=== PATIENT | female | born 1995 | race Caucasian/White ===

== ENCOUNTER 2016-12-20 18:11 | Emergency (ER) | payer MEDICAID, OTHER ==
[~2016-12-20] VITALS: Ht 165.1 cm; Wt 68.2 kg
[~2016-12-20 18:11] MED LIST: PREN0.01 PO; SULF1TAB47 PO
[2016-12-20 18:20] VITALS: BP 95/72; PULSE 110; RESP 18; TEMP 98.1; O2SAT 100
[2016-12-20] MEDS ORDERED: LORA2TAB7 PO (18:39)
[2016-12-20] MEDS ORDERED: SPRI28TA PO (18:39)
[2016-12-20] MEDS ORDERED: SODIUM CHLORID 0.9% 500 ML INJ 500 ML IV ONE (18:45)
[2016-12-20] MEDS ORDERED: DICYCLOMINE HCL 10 MG CAP PO ONE (18:45)
[2016-12-20] MEDS ORDERED: LIDOCAINE VISCOUS 2% SOLN 15 ML UDC PO ONE (18:45)
[2016-12-20] MEDS ORDERED: ONDANSETRON HCL 4 MG/2 ML VIAL IVP ONE (18:45)
[2016-12-20] MEDS ORDERED: SODIUM CHLORIDE 0.9% FLUSH 10 ML FLUSH IVF PRN (18:45)
[2016-12-20] MEDS ORDERED: FAMOTIDINE 20 MG/2 ML VIAL IV PUSH ONE (18:45)
[2016-12-20] MEDS ORDERED: ALUMINUM/MAGNESIUM/SIMETH 30 ML CUP PO ONE (18:45)
[2016-12-20 18:51] VITALS: O2SAT 100
--- NOTE | 2016-12-20 18:53 | PD ---
HPI Chief Complaint: Chest Pain Time Seen by Provider: 18:23 Travel History International Travel<30 days: No Contact w/Intl Traveler<30days: No Traveled to known affect area: No History of Present Illness HPI Patient is a 21-year-old female who presents to emergency room with complaints of chest pain and abdominal pain. Patient reports that her symptoms all began in 2014 after she had her gallbladder taken out. Patient reports that she has been having increased epigastric pain which radiates to her chest, reports that her symptoms initially were intermittent in nature, reports that for the past 2 months, her symptoms have been constant. Patient reports that she did follow- up with her primary care doctor who checked labs on her, reports that her primary care doctor thought that she had pancreatitis, reports that her lipase was normal. Patient reports that for the past 2 months, she has had constant chest pain as well as epigastric pain. Reports that the epigastric pain researcher chest. Patient reports that symptoms feel sharp and stabbing and pressure pain, reports that she does feel nauseous with her symptoms. Patient reports that nothing makes her symptoms feel better or worse. Patient has been tolerating food as normal that she admits to feeling nauseous after she eats or drinks anything. Denies any weight loss. No fevers or chills. Patient with no recent travels or trips, she is on control pills at this time. Patient is a smoker. No family history of early coronary disease or NV. Patient does not have any coronary disease, hypertension or hyperlipidemia. PFSH Past Medical History Asthma: Yes Diminished Hearing: No ?: Not Social History Alcohol Use: Yes (occ) Tobacco Use: Yes Substance Use: No Allergies-Medications (Allergen,Severity, Reaction): Coded Allergies: No Known Allergies (Verified , 11/13/11) Reported Meds & Prescriptions Reported Meds & Active Scripts Active Protonix (Pantoprazole Sodium) 40 Mg Tab 40 Mg PO DAILY Reported Sprintec 28 (Norgestimate-Ethinyl Estradiol) 0.25-35 mg-Mcg Tab 1 Tab PO DAILY Lorazepam 2 Mg Tab 2 Mg PO TID PRN Physical Exam Narrative GENERAL: No acute distress, nontoxic SKIN: Warm and dry. HEAD: Atraumatic. Normocephalic. EYES: Pupils equal and round. No scleral icterus. No injection or drainage. ENT: No nasal bleeding or discharge. Mucous membranes pink and moist. NECK: Trachea midline. No JVD. CARDIOVASCULAR: Regular rate and rhythm. No murmur appreciated. RESPIRATORY: No accessory muscle use. Clear to auscultation. Breath sounds equal bilaterally. GASTROINTESTINAL: Abdomen soft, non-tender, nondistended. Hepatic and splenic margins not palpable. MUSCULOSKELETAL: No obvious deformities. No clubbing. No cyanosis. No edema. NEUROLOGICAL: Awake and alert. Normal speech. PSYCHIATRIC: Appropriate mood and affect; insight and judgment normal. Data Data Last Documented VS Vital Signs Date Time Temp Pulse Resp B/P Pulse Ox O2 Delivery O2 Flow Rate FiO2 12/20/16 20:40 94 16 115/69 99 Room Air 12/20/16 18:20 98.1 Orders Electrocardiogram (12/20/16 ) B-Type Natriuretic Peptide (12/20/16 18:31) Ckmb (Isoenzyme) Profile (12/20/16 18:31) Complete Blood Count With Diff (12/20/16 18:31) Comprehensive Metabolic Panel (12/20/16 18:31) D-Dimer (12/20/16 18:31) Troponin I (12/20/16 18:31) Lipase (12/20/16 18:31) Chest, Single Ap (12/20/16 18:31) Ecg Monitoring (12/20/16 18:31) Iv Access Insert/Monitor (12/20/16 18:31) Oximetry (12/20/16 18:31) Sodium Chloride 0.9% Flush (Ns Flush) (12/20/16 18:45) Sodium Chlorid 0.9% 500 Ml Inj (Ns 500 M (12/20/16 18:45) Ed Urine Pregnancytest Poc (12/20/16 18:31) Ondansetron Inj (Zofran Inj) (12/20/16 18:45) Famotidine Inj (Pepcid Inj) (12/20/16 18:45) Dicyclomine (Bentyl) (12/20/16 18:45) Al-Mag Hy-Si 40-40-4 Mg/Ml Liq (Mag-Al P (12/20/16 18:45) Lidocaine 2% Viscous (Xylocaine 2% Visco (12/20/16 18:45) Ct Pulmonary Angiogram (12/20/16 19:26) Ketorolac Inj (Toradol Inj) (12/20/16 19:30) Iohexol 350 Inj (Omnipaque 350 Inj) (12/20/16 20:13) Sucralfate Liq (Carafate Liq) (12/20/16 20:45) Labs Laboratory Tests Test 12/20/16 18:47 White Blood Count 11.3 TH/MM3 Red Blood Count 4.58 MIL/MM3 Hemoglobin 13.9 GM/DL Hematocrit 40.1 % Mean Corpuscular Volume 87.5 FL Mean Corpuscular Hemoglobin 30.2 PG Mean Corpuscular Hemoglobin 34.6 % Concent Red Cell Distribution Width 13.9 % Platelet Count 282 TH/MM3 Mean Platelet Volume 6.3 FL Neutrophils (%) (Auto) 88.5 % Lymphocytes (%) (Auto) 5.6 % Monocytes (%) (Auto) 3.9 % Eosinophils (%) (Auto) 1.8 % Basophils (%) (Auto) 0.2 % Neutrophils # (Auto) 10.1 TH/MM3 Lymphocytes # (Auto) 0.6 TH/MM3 Monocytes # (Auto) 0.4 TH/MM3 Eosinophils # (Auto) 0.2 TH/MM3 Basophils # (Auto) 0.0 TH/MM3 CBC Comment AUTO DIFF Differential Comment AUTO DIFF CONFIRMED D-Dimer Quantitative (PE/DVT) 0.34 MG/L FEU Sodium Level 142 MEQ/L Potassium Level 3.4 MEQ/L Chloride Level 105 MEQ/L Carbon Dioxide Level 29.7 MEQ/L Anion Gap 7 MEQ/L Blood Urea Nitrogen 13 MG/DL Creatinine 0.87 MG/DL Estimat Glomerular Filtration 82 ML/MIN Rate Random Glucose 87 MG/DL Calcium Level 8.0 MG/DL Total Bilirubin 0.9 MG/DL Aspartate Amino Transf 34 U/L (AST/SGOT) Alanine Aminotransferase 37 U/L (ALT/SGPT) Alkaline Phosphatase 67 U/L Total Creatine Kinase 73 U/L Troponin I LESS THAN 0.02 NG/ML B-Type Natriuretic Peptide 6 PG/ML Total Protein 7.5 GM/DL Albumin 3.6 GM/DL Lipase 357 U/L [facility] Medical Decision Making Medical Screen Exam Complete: Yes Emergency Medical Condition: Yes Interpretation(s) EKG at 1735: Sinus tach at 103bpm, qt/qtc: 322/397, no acute st or t wave changes Vital Signs Date Time Temp Pulse Resp B/P Pulse Ox O2 Delivery O2 Flow Rate FiO2 12/20/16 18:35 110 16 12/20/16 18:20 98.1 110 18 95/72 100 Differential Diagnosis ACS, arrhythmia, PE, pancreatitis, retained gallstone, GERD, gastritis Narrative Course Patient is a 21-year-old female who presents to emergency room for evaluation of epigastric pain which radiates to her chest which has been intermittent for the past 2 years. Patient reports that symptoms have been persistent for the past 2 months, she has follow-up with her primary care doctor who to check lab work on her last week and reported that everything looked normal. She has seen a home builder in the past, reports that her endoscopy was normal at that time. Patient unsure why she continues to have epigastric pain which relieved her chest. EKG obtained upon presentation to the emergency room. EKG with no acute changes. Patient was placed on a cardiac/vascular sonographer. On exam, patient is nontoxic , laughing smiling, she does have epigastric pain, plan to obtain lab work including lipase and liver function tests. X-ray of the chest ordered to evaluate for possible free air. Cardiac enzymes were ordered to rule out infectious etiology of chest pain including but not limited to pericarditis or endocarditis. Cardiac enzymes were not ordered to rule out ACS, as patient's symptoms are very atypical for ACS. Plan to give patient GI cocktail as well as pepcid to see if this helps with her symptoms. Will continue to monitor patient on cardiac/vascular sonographer. urine preg: neg wbc 11.3 Hemoglobin 13.9 Hematocrit 40.1 Platelets 282 Sodium 142 Potassium 3.4 Chloride 105 Carbon dioxide 29.7 BUN 13 Creatinine 0.87 Lipase 357 AST/ALT: 34/37 D-Dimer 0.34 Troponin: less than 0.02 total ck: 73 chest xray: normal exam for patient of this age Patient reports that she is not feeling any better with her symptoms, will give her a dose of Toradol for pain. Plan to rule PE at this time as patient was tachy upon arrival to ER and is on bcp's. Patient agreeable to further testing. Last Impressions CT Angiography 12/20/161925 Signed Impressions: Service Date/Time: November 19:54 - CONCLUSION: Normal examination. Richard Min MD Chest X-Ray 12/20/16 1831 Signed Impressions: Service Date/Time: November 18:51 - CONCLUSION: Normal examination for a patient of this age. Richard Min MD Patient feeling better at this time. Signs and symptoms of when to return to the emergency room was reviewed with patient detail. She will follow-up with her GI doctor as well as cardiology, signs and symptoms of when to return to emergency room was reviewed. Patient thankful for care. Diagnosis Primary Impression: Chest pain Qualified Code: R07.9 - Chest pain, unspecified type Additional Impressions: Costochondritis GERD (gastroesophageal reflux disease) Qualified Code: K21.9 - Gastroesophageal reflux disease without esophagitis Referrals: Guru Perkins DO Patient Instructions: General Instructions Additional Instructions: Please provide patient with a copy of her lab work and studies at discharge Steph follow-up with primary care doctor in 2-3 days Return to the emergency room as needed Please follow-up with biological technical officer for further workup of symptoms Please follow-up with your home builder for earliest follow-up Med/Other Pt SpecificInfo: Prescription(s) given Scripts Ibuprofen 600 Mg Ook886 Mg PO Q6H PRN (Pain/Inflammation) #40 TAB Ref 0 Prov:Luz Marina Gunter DO 12/20/16 Pantoprazole (Protonix)40 Mg Tab40 Mg PO DAILY #30 TAB Ref 0 Prov:Luz Marina Gunter DO 12/20/16 Disposition: 01 DISCHARGE HOME Luz Marina Gunter DO Dec 20, 2016 18:52
[2016-12-20 18:54] LABS: AUTOMATED NEUTROPHIL # 10.1 TH/MM3 (1.8-7.7); BASOPHIL % 0.2 % (0.0-2.0); EOSINOPHIL # 0.2 TH/MM3 (0-0.4); EOSINOPHIL % 1.8 % (0.0-4.0); HEMATOCRIT 40.1 % (35.0-46.0); LYMPH % 5.6 % (9.0-44.0); LYMPHOCYTE # 0.6 TH/MM3 (1.0-4.8); MEAN CELL VOLUME 87.5 FL (80.0-100.0); MEAN CORPUSCULAR HEMOGLOBIN 30.2 PG (27.0-34.0); MEAN CORPUSCULAR HGB CONC 34.6 % (32.0-36.0); MONO % 3.9 % (0.0-8.0); NEUT % 88.5 % (16.0-70.0); PLATELET COUNT 282 TH/MM3 (150-450); RED BLOOD COUNT 4.58 MIL/MM3 (4.00-5.30); RED CELL DISTRIBUTION WIDTH 13.9 % (11.6-17.2); WHITE BLOOD COUNT 11.3 TH/MM3 (4.0-11.0)
[2016-12-20 18:57] LABS: HEMO FLAGS AUTO DIFF
[2016-12-20 19:00] LABS: CHLORIDE 105 MEQ/L (98-107); POTASSIUM 3.4 MEQ/L (3.5-5.1); SODIUM (NA) 142 MEQ/L (136-145)
[2016-12-20 19:04] LABS: ANION GAP 7 MEQ/L (5-15); BICARBONATE 29.7 MEQ/L (21.0-32.0)
[2016-12-20 19:05] LABS: BLOOD UREA NITROGEN 13 MG/DL (7-18)
[2016-12-20 19:07] LABS: ALT (GPT) 37 U/L (10-53); AST (GOT) 34 U/L (15-37)
[2016-12-20 19:08] LABS: GLOMERULAR FILTRATION RATE 82 ML/MIN (>89)
[2016-12-20 19:09] LABS: TOTAL BILIRUBIN ADULT 0.9 MG/DL (0.2-1.0)
[2016-12-20 19:10] LABS: ALKALINE PHOSPHATASE 67 U/L (45-117)
--- NOTE | 2016-12-20 19:23 | RADHPO ---
EXAM DATE/TIME: 12/20/2016 18:51 [facility] COMPARISON: No previous studies available for comparison. INDICATIONS : Lower chest pains and shortness of breath. MEDICAL HISTORY : Asthma. SURGICAL HISTORY : Cholecystectomy. ENCOUNTER: Initial ACUITY: 2 months PAIN SCORE: 9/10 LOCATION: Bilateral lower chest FINDINGS: A single view of the chest demonstrates the lungs to be symmetrically aerated without evidence of mas s, infiltrate or effusion. The cardiomediastinal contours are unremarkable. Osseous structures are intact. CONCLUSION: Normal examination for a patient of this age. Richard Min MD on December 20, 2016 at 19:22 Board Certified Radiologist. This report was verified electronically.
[2016-12-20 19:24] VITALS: BP 115/69; PULSE 107; RESP 16; O2SAT 100
[2016-12-20] MEDS ORDERED: KETOROLAC TROMETHAMINE 30 MG/ML (IVP) VIAL IV PUSH ONE (19:30)
[2016-12-20 19:48] LABS: CREATINE KINASE 73 U/L (26-192)
[2016-12-20 20:07] LABS: SCAN/DIFF AUTO DIFF CONFIRMED
[2016-12-20] MEDS ORDERED: PROT40TA PO (20:10)
[2016-12-20] MEDS ORDERED: IOHEXOL 350 MG/ML 10 ML VIAL (for RAD DIAG) IV ONE (20:13)
[2016-12-20 20:40] VITALS: BP 115/69; PULSE 94; RESP 16; O2SAT 99
--- NOTE | 2016-12-20 20:41 | RADHPO ---
EXAM DATE/TIME: 12/20/2016 19:54 [facility] COMPARISON: No previous studies available for comparison. INDICATIONS : Chest pain. Shortness of breath. IV CONTRAST: 75 cc Omnipaque 350 (iohexol) IV RADIATION DOSE: 8.70 CTDIvol (mGy) MEDICAL HISTORY : Asthma. SURGICAL HISTORY : None. ENCOUNTER: Initial ACUITY: 2 days PAIN SCALE: 9/10 LOCATION: chest TECHNIQUE: Volumetric scanning of the chest was performed using a pulmonary embolism protocol MIP images were re constructed. Using automated exposure control and adjustment of the mA and/or kV according to patien t size, radiation dose was kept as low as reasonably achievable to obtain optimal diagnostic quality images. FINDINGS: PULMONARY ARTERIES: No filling defects are seen in the pulmonary arteries through the segmental level. LUNGS: There is no consolidation or pneumothorax . No concerning pulmonary nodule is visualized. PLEURAE: There is no pleural thickening or pleural effusion. MEDIASTINUM: There is good visualization of the great vessels of the middle mediastinum. No evidence of mediastin al or hilar adenopathy/mass. MUSCULOSKELETAL: Within normal limits for patient age. MISCELLANEOUS: The visualized upper abdominal organs demonstrate no acute abnormality. CONCLUSION: Normal examination. iRchard Min MD on December 20, 2016 at 20:36 Board Certified Radiologist. This report was verified electronically.
[2016-12-20] MEDS ORDERED: SUCRALFATE 1 GM/10 ML CUP PO ONE (20:45)
[2016-12-20] MEDS ORDERED: IBUP-232 PO (21:10)
[2016-12-20 21:35] VITALS: BP 116/60; PULSE 106; RESP 16
--- NOTE | 2016-12-22 11:14 | EKG ---
Date Performed: 12/20/2016 Time Performed: 17:35:12 PTAGE: 21 years EKG: Sinus tachycardia rSr'(V1) - probable normal variant Borderline ECG NO PREVIOUS TRACING DOCTOR: Ethan Marcum Interpretating Date/Time 12/22/2016 11:11:47
== END 2016-12-20 22:05 | disposition home or self-care (01) ==
LOC: PHED 18:11
DX: K21.9 Gastro-esophageal reflux disease without esophagitis (principal); M94.0 Chondrocostal junction syndrome [Tietze]; R07.9 Chest pain, unspecified; Z72.0 Tobacco use
CPT/HCPCS: 71010; 71275; 80053; 82550; 83690; 83880; 84484; 84703; 85025; 85379; 93005; J1885; J2405; J7040; Q9967; 96374; 96375

== ENCOUNTER 2017-03-14 20:54 | Emergency (ER) | payer MEDICAID ==
[~2017-03-14] VITALS: Ht 165.1 cm; Wt 66.2 kg
[~2017-03-14 20:54] MED LIST changes: +IBUP-232 PO; +LORA2TAB7 PO; -PREN0.01 PO; +PROT40TA PO; +SPRI28TA PO; -SULF1TAB47 PO
[2017-03-14 21:04] VITALS: BP 113/72; PULSE 84; RESP 14; TEMP 98.2; O2SAT 95
--- NOTE | 2017-03-14 21:28 | PD ---
HPI Chief Complaint: Abdominal Pain Time Seen by Provider: 21:11 Travel History International Travel<30 days: No Contact w/Intl Traveler<30days: No Traveled to known affect area: No History of Present Illness HPI This 21-year-old female is complaining of right-sided abdominal pain. She's been having the pain about 2 days. She thinks she might be . She has taken several home tests but the results of been inconsistent. Her last period was February 10. She had one day of bleeding last . She has had 2 previous pregnancies. She has a [id number] daughter and had a miscarriage at 16 weeks. Her blood type is O+. She feels like she is . She says she's eating all of time he gets nauseated in the morning. Her pain is not affected by eating. She does have a history of ovarian cysts PFSH Past Medical History Asthma: Yes Diminished Hearing: No Social History Alcohol Use: Yes (occ) Tobacco Use: Yes Substance Use: No Allergies-Medications (Allergen,Severity, Reaction): Coded Allergies: Dilaudid (Verified Allergy, Intermediate, 03/14/17) not sure, md told pt "you had bad reaction" after surgery Reported Meds & Prescriptions Reported Meds & Active Scripts Active Reported Sprintec 28 (Norgestimate-Ethinyl Estradiol) 0.25-35 mg-Mcg Tab 1 Tab PO DAILY Lorazepam 2 Mg Tab 2 Mg PO TID PRN Review of Systems General / Constitutional: No: Fever, Chills Eyes: No: Diploplia, Blurred Vision HENT: No: Headaches Cardiovascular: No: Chest Pain or Discomfort, Palpitations Respiratory: No: Cough Gastrointestinal: Positive: Abdominal Pain, No: Nausea, Vomiting Genitourinary: No: Urgency, Frequency Musculoskeletal: No: Myalgias Neurologic: No: Weakness, Dizziness Psychiatric: No: Anxiety Hematologic/Lymphatic: No: Easy Bruising Physical Exam Narrative GENERAL: Well-developed female SKIN: Focused skin assessment warm/dry. HEAD: Atraumatic. Normocephalic. EYES: Pupils equal and round. No scleral icterus. No injection or drainage. ENT: No nasal bleeding or discharge. Mucous membranes pink and moist. NECK: Trachea midline. No JVD. GASTROINTESTINAL: Abdomen soft, non-tender, nondistended. Hepatic and splenic margins not palpable. Pelvic: There is a moderate amount of whitish discharge. There is no pain with movement of the cervix. There is some right adnexal tenderness MUSCULOSKELETAL: No obvious deformities. No clubbing. No cyanosis. No edema. NEUROLOGICAL: Awake and alert. No obvious cranial nerve deficits. Motor grossly within normal limits. Normal speech. PSYCHIATRIC: Appropriate mood and affect; insight and judgment normal. Data Data Last Documented VS Vital Signs Date Time Temp Pulse Resp B/P Pulse Ox O2 Delivery O2 Flow Rate FiO2 03/14/17 22:15 75 17 112/73 98 Room Air 03/14/17 21:04 98.2 Orders Beta Hcg (Quant/Titer) (03/14/17 21:24) Complete Blood Count With Diff (03/14/17 21:24) Gc And Chlamydia Pcr (03/14/17 21:24) Urinalysis - C+S If Indicated (03/14/17 21:24) Wet Prep Profile (03/14/17 21:49) Ondansetron Inj (Zofran Inj) (03/14/17 22:00) Labs Laboratory Tests Test 03/14/17 21:40 White Blood Count 9.1 TH/MM3 Red Blood Count 4.37 MIL/MM3 Hemoglobin 13.9 GM/DL Hematocrit 39.1 % Mean Corpuscular Volume 89.4 FL Mean Corpuscular Hemoglobin 31.9 PG Mean Corpuscular Hemoglobin 35.7 % Concent Red Cell Distribution Width 12.6 % Platelet Count 300 TH/MM3 Mean Platelet Volume 6.8 FL Neutrophils (%) (Auto) 60.0 % Lymphocytes (%) (Auto) 31.4 % Monocytes (%) (Auto) 5.4 % Eosinophils (%) (Auto) 2.8 % Basophils (%) (Auto) 0.4 % Neutrophils # (Auto) 5.4 TH/MM3 Lymphocytes # (Auto) 2.9 TH/MM3 Monocytes # (Auto) 0.5 TH/MM3 Eosinophils # (Auto) 0.3 TH/MM3 Basophils # (Auto) 0.0 TH/MM3 CBC Comment DIFF FINAL Differential Comment Urine Color YELLOW Urine Turbidity CLEAR Urine pH 7.0 Urine Specific [place] 1.010 Urine Protein NEG mg/dL Urine Glucose (UA) NEG mg/dL Urine Ketones NEG mg/dL Urine Occult Blood NEG Urine Nitrite NEG Urine Bilirubin NEG Urine Leukocyte Esterase NEG Urine WBC 0-2 /hpf Urine Squamous Epithelial 0-5 /hpf Cells Microscopic Urinalysis Comment CULT NOT INDICATED Clue Cells (Wet Prep) PRESENT Vaginal Trichomonas (Wet Prep) NONE SEEN Vaginal Yeast (Wet Prep) NONE SEEN Human Chorionic Gonadotropin, LESS THAN 1 Quant MIU/ML MDM Medical Decision Making Medical Screen Exam Complete: Yes Emergency Medical Condition: Yes Medical Record Reviewed: Yes Differential Diagnosis Differential includes , ectopic , ovarian cyst, vaginitis Narrative Course Quantitative beta hCG is 0. Wet prep is positive for clue cells. She'll be put on Flagyl and she'll be released Diagnosis Primary Impression: Bacterial vaginosis Scripts Metronidazole (Flagyl)500 Mg Spe226 Mg PO TID 7 Days Ref 0 Prov:Corbin Aguilera MD 03/14/17 Disposition: 01 DISCHARGE HOME Condition: Stable Corbin Aguilera MD Mar 14, 2017 21:28
[2017-03-14] MEDS ORDERED: ONDANSETRON HCL 4 MG/2 ML VIAL IV PUSH ONE (22:00)
[2017-03-14 22:01] LABS: BLOOD, URINE NEG (NEG); GLUCOSE,URINE NEG (NEG); KETONE, URINE NEG (NEG); NITRITE,URINE NEG (NEG)
[2017-03-14 22:04] LABS: AUTOMATED NEUTROPHIL # 5.4 TH/MM3 (1.8-7.7); BASOPHIL % 0.4 % (0.0-2.0); EOSINOPHIL # 0.3 TH/MM3 (0-0.4); EOSINOPHIL % 2.8 % (0.0-4.0); HEMATOCRIT 39.1 % (35.0-46.0); HEMO FLAGS DIFF FINAL; LYMPH % 31.4 % (9.0-44.0); LYMPHOCYTE # 2.9 TH/MM3 (1.0-4.8); MEAN CELL VOLUME 89.4 FL (80.0-100.0); MEAN CORPUSCULAR HEMOGLOBIN 31.9 PG (27.0-34.0); MEAN CORPUSCULAR HGB CONC 35.7 % (32.0-36.0); MONO % 5.4 % (0.0-8.0); PLATELET COUNT 300 TH/MM3 (150-450); RED BLOOD COUNT 4.37 MIL/MM3 (4.00-5.30); RED CELL DISTRIBUTION WIDTH 12.6 % (11.6-17.2); WHITE BLOOD COUNT 9.1 TH/MM3 (4.0-11.0)
[2017-03-14 22:06] LABS: URINE COLOR YELLOW (YELLW/STRAW); WBC, URINE 0-2 /hpf (0-5)
[2017-03-14 22:07] LABS: COMMENT (UR) CULT NOT INDICATED; CULTURE IF INDICATED CULT NOT INDICATED; SQUAMOUS EPITHELIAL CELL URINE 0-5 /hpf (0-5)
[2017-03-14 22:15] VITALS: BP 112/73; PULSE 75; RESP 17; O2SAT 98
[2017-03-14 22:17] LABS: BETA HCG QUANT LESS THAN 1 MIU/ML (0-5)
[2017-03-14] MEDS ORDERED: METR-1 PO (22:42)
[2017-03-15 04:09] LABS: CHLAMYDIA PCR NOT DETECTED (NOT DETECT); NEISSERIA PCR NOT DETECTED (NOT DETECT)
== END 2017-03-14 23:00 | disposition home or self-care (01) ==
LOC: PHED 20:54
DX: N76.0 Acute vaginitis (principal)
CPT/HCPCS: 81001; 84702; 85025; 87210; 87491; 87591; 96374; 99284; J2405

== ENCOUNTER 2017-10-23 20:27 | Emergency (ER) | payer MEDICAID ==
[~2017-10-23] VITALS: Ht 165.1 cm; Wt 63.6 kg
[~2017-10-23 20:27] MED LIST changes: -IBUP-232 PO; +METR-1 PO; -PROT40TA PO
[2017-10-23 20:29] VITALS: BP 109/67; PULSE 88; RESP 16; TEMP 97.9; O2SAT 98
[2017-10-23 22:22] LABS: BACTERIA, URINE OCC /hpf; BILIRUBIN, URINE NEG (NEG); BLOOD, URINE NEG (NEG); GLUCOSE,URINE NEG (NEG); KETONE, URINE NEG (NEG); MUCUS URINE FEW /lpf (OCC); NITRITE,URINE NEG (NEG); PH, URINE 6.5 (5.0-8.5); SQUAMOUS EPITHELIAL CELL URINE 3 /hpf (0-5); URINE COLOR YELLOW (YELLW/STRAW); URINE LEUKOCYTE ESTERASE NEG (NEG)
[2017-10-23 22:23] LABS: AUTOMATED NEUTROPHIL # 8.4 TH/MM3 (1.8-7.7); BASOPHIL % 0.3 % (0.0-2.0); EOSINOPHIL # 0.1 TH/MM3 (0-0.4); EOSINOPHIL % 1.3 % (0.0-4.0); HEMOGLOBIN 13.5 GM/DL (11.6-15.3); LYMPH % 17.1 % (9.0-44.0); LYMPHOCYTE # 1.9 TH/MM3 (1.0-4.8); MEAN CELL VOLUME 88.9 FL (80.0-100.0); MEAN CORPUSCULAR HEMOGLOBIN 31.6 PG (27.0-34.0); MEAN CORPUSCULAR HGB CONC 35.6 % (32.0-36.0); MEAN PLATELET VOLUME 6.9 FL (7.0-11.0); MONO % 5.5 % (0.0-8.0); MONOCYTE # 0.6 TH/MM3 (0-0.9); NEUT % 75.8 % (16.0-70.0); PLATELET COUNT 262 TH/MM3 (150-450); RED BLOOD COUNT 4.28 MIL/MM3 (4.00-5.30); WHITE BLOOD COUNT 11.1 TH/MM3 (4.0-11.0)
[2017-10-23 22:45] LABS: CALCIUM 8.3 MG/DL (8.5-10.1); CREATININE 0.66 MG/DL (0.50-1.00)
--- NOTE | 2017-10-23 23:52 | PD ---
HPI . Bleeding in Chief Complaint: Related Problem Time Seen by Provider: 21:39 Travel History International Travel<30 days: No Contact w/Intl Traveler<30days: No Traveled to known affect area: No History of Present Illness HPI This presents with chief complaint of pelvic cramping and vaginal bleeding in early . She states that she is 7-8 weeks . The bleeding started today. She states that it is very mild and has actually come and gone. She has not yet seen anyone for care. She has had previous spontaneous ABs 2 and a previous premature . Her blood type is O+. She states her last sexual intercourse was several weeks ago. She is unaware of any causative factor for the bleeding. PFSH Past Medical History Asthma: Yes Anxiety: Yes Diminished Hearing: No Genitourinary: Yes (ovarian cyst) Immunizations Current: Yes Influenza Vaccination: No ?: LMP: 09/02/2017 : 3 Past Surgical History Cholecystectomy: Yes Social History Alcohol Use: Yes (occ) Tobacco Use: No (1-2 cigs daily) Substance Use: No Allergies-Medications (Allergen,Severity, Reaction): Coded Allergies: hydromorphone (Unverified Allergy, Intermediate, 10/23/17) not sure, told pt "you had bad reaction" after surgery Reported Meds & Prescriptions Reported Meds & Active Scripts Active Reported Lorazepam 2 Mg Tab 2 Mg PO TID PRN Review of Systems Except as stated in HPI: all other systems reviewed are Neg Physical Exam Narrative GENERAL: Awake and alert and in no acute distress. SKIN: Warm and dry. HEAD: Normocephalic/atraumatic. EYES: Pupils are equal. Extraocular movements are intact. NECK: Normal range of motion. CARDIOVASCULAR: Regular rate and rhythm. RESPIRATORY: Nonlabored respirations. ABDOMEN: Soft and nontender. : Normal female external genitalia. Scant blood at the cervical os. Cervical os is closed. There is no cervical motion tenderness. Her uterus is appropriately enlarged for dates. MUSCULOSKELETAL: Atraumatic. NEUROLOGICAL: Nonfocal. PSYCHIATRIC: Appropriate mood and affect. Data Data Last Documented VS Vital Signs Date Time Temp Pulse Resp B/P (MAP) Pulse Ox O2 Delivery O2 Flow Rate FiO2 10/23/17 20:29 97.9 88 16 109/67 (81) 98 Room Air Orders Orders Beta Hcg (Quant/Titer) (10/23/17 20:37) Complete Blood Count With Diff (10/23/17 20:37) Basic Metabolic Panel (Bmp) (10/23/17 20:37) Urinalysis - C+S If Indicated (10/23/17 20:37) Ed Urine Pregnancytest Poc (10/23/17 20:37) Gc And Chlamydia Pcr (10/23/17 22:13) Wet Prep Profile (10/23/17 22:13) Us Pelvis (Ques Preg/Ectopic) (10/23/17 21:44) Labs Laboratory Tests Test 10/23/17 21:45 10/23/17 21:55 10/23/17 22:05 Urine Color YELLOW Urine Turbidity CLEAR Urine pH 6.5 Urine Specific [place] 1.023 Urine Protein TRACE mg/dL Urine Glucose (UA) NEG mg/dL Urine Ketones NEG mg/dL Urine Occult Blood NEG Urine Nitrite NEG Urine Bilirubin NEG Urine Urobilinogen LESS THAN 2.0 MG/DL Urine Leukocyte Esterase NEG Urine RBC LESS THAN 1 /hpf Urine WBC 1 /hpf Urine Squamous Epithelial Cells 3 /hpf Urine Bacteria OCC /hpf Urine Mucus FEW /lpf Microscopic Urinalysis Comment CULT NOT INDICATED White Blood Count 11.1 TH/MM3 Red Blood Count 4.28 MIL/MM3 Hemoglobin 13.5 GM/DL Hematocrit 38.0 % Mean Corpuscular Volume 88.9 FL Mean Corpuscular Hemoglobin 31.6 PG Mean Corpuscular Hemoglobin Concent 35.6 % Red Cell Distribution Width 13.0 % Platelet Count 262 TH/MM3 Mean Platelet Volume 6.9 FL Neutrophils (%) (Auto) 75.8 % Lymphocytes (%) (Auto) 17.1 % Monocytes (%) (Auto) 5.5 % Eosinophils (%) (Auto) 1.3 % Basophils (%) (Auto) 0.3 % Neutrophils # (Auto) 8.4 TH/MM3 Lymphocytes # (Auto) 1.9 TH/MM3 Monocytes # (Auto) 0.6 TH/MM3 Eosinophils # (Auto) 0.1 TH/MM3 Basophils # (Auto) 0.0 TH/MM3 CBC Comment DIFF FINAL Differential Comment Blood Urea Nitrogen 13 MG/DL Creatinine 0.66 MG/DL Random Glucose 84 MG/DL Calcium Level 8.3 MG/DL Sodium Level 140 MEQ/L Potassium Level 3.5 MEQ/L Chloride Level 108 MEQ/L Carbon Dioxide Level 25.0 MEQ/L Anion Gap 7 MEQ/L Estimat Glomerular Filtration Rate 112 ML/MIN Human Chorionic Gonadotropin, Quant 790304 MIU/ML Clue Cells (Wet Prep) NS Vaginal Trichomonas (Wet Prep) NS Vaginal Yeast (Wet Prep) NS MDM Medical Decision Making Medical Screen Exam Complete: Yes Emergency Medical Condition: Yes Differential Diagnosis Differential diagnosis of bleeding in early includes but is not limited to ectopic , , physiologic, UTI Narrative Course This patient presents complaining with pelvic cramping and bleeding in early . Her previous blood type was noted to be O+. Quantitative hCG is 102K CBC & BMP Diagram 10/23/17 21:55 Calcium Level 8.3 L UA is negative. Wet prep is negative. Ultrasound shows a viable 7 week, 4 day fetus with a couple of subchorionic hemorrhages. Diagnosis Primary Impression: Bleeding in early Patient Instructions: First Trimester (ED), General Instructions Disposition: 01 DISCHARGE HOME Condition: Stable Mahi Murrieta MD Oct 23, 2017 23:52
--- NOTE | 2017-10-23 23:52 | RADRPT ---
EXAM DATE/TIME: 10/23/2017 22:45 [facility] COMPARISON: No previous studies available for comparison. INDICATIONS : Bleeding and pain with . LAB(S): Beta-hC MEDICAL HISTORY : . Miscarriage x 2. Ovarian cyst. Asthma. Anxiety. SURGICAL HISTORY : Cholecystectomy. ENCOUNTER: Initial ACUITY: 1 day PAIN SCORE: 4/10 LOCATION: Bilateral pelvis MEASUREMENTS: UTERUS: 10.5 x 7.9 x 5.9 cm ENDOMETRIAL STRIPE: 18 mm RIGHT OVARY: 4.1 x 3.3 x 2.1 cm LEFT OVARY: 2.9 x 1.6 x 1.4 cm FREE FLUID: No CROWN RUMP LENGTH: 1.3 cm = 7 WKS 4 DAYS FHR: 154 BPM FINDINGS: Intrauterine is demonstrated with a gestational sac measuring 2.8 x 3.0 cm, characteristic of 7 week, 2 days size. This is concordant with the size of the pole. heart rate is doc umented by Doppler. There are as 2 focal areas of decreased attenuation in the uterus adjacent to th e gestational sac measuring up to 2.5 cm which could represent subchorionic hemorrhages. There is a cyst in the right ovary measuring 2.4 x 2.3 cm. No evidence of free fluid in the adnexa or cul-de-sa c. CONCLUSION: Viable intrauterine dated between 7 and 8 weeks. Uriah Aragon MD on October 23, 2017 at 23:48 Board Certified Radiologist. This report was verified electronically.
== END 2017-10-24 00:21 | disposition home or self-care (01) ==
LOC: NEPC 20:27
DX: O46.91 Antepartum hemorrhage, unspecified, first trimester (principal); O99.511 Diseases of the respiratory system complicating pregnancy, first trimester; J45.909 Unspecified asthma, uncomplicated; O99.341 Other mental disorders complicating pregnancy, first trimester; F41.9 Anxiety disorder, unspecified; O99.331 Smoking (tobacco) complicating pregnancy, first trimester; Z3A.01 Less than 8 weeks gestation of pregnancy; Z88.5 Allergy status to narcotic agent; Z79.899 Other long term (current) drug therapy
CPT/HCPCS: 76700; 80048; 81001; 84702; 84703; 85025; 87210; 87491; 87591; 99284

== ENCOUNTER 2017-11-01 17:06 | Emergency (ER) | payer MEDICAID ==
[~2017-11-01] VITALS: Ht 162.6 cm; Wt 66.0 kg
[~2017-11-01 17:06] MED LIST changes: -METR-1 PO; -SPRI28TA PO
[2017-11-01 17:10] VITALS: BP 108/72; PULSE 91; RESP 20; TEMP 98.4; O2SAT 97
[2017-11-01 18:14] LABS: AUTOMATED NEUTROPHIL # 10.1 TH/MM3 (1.8-7.7); BASOPHIL # 0.1 TH/MM3 (0-0.2); BASOPHIL % 0.4 % (0.0-2.0); EOSINOPHIL # 0.1 TH/MM3 (0-0.4); EOSINOPHIL % 0.9 % (0.0-4.0); HEMATOCRIT 39.4 % (35.0-46.0); HEMOGLOBIN 14.1 GM/DL (11.6-15.3); LYMPH % 14.8 % (9.0-44.0); LYMPHOCYTE # 1.9 TH/MM3 (1.0-4.8); MEAN CELL VOLUME 89.7 FL (80.0-100.0); MEAN CORPUSCULAR HEMOGLOBIN 32.1 PG (27.0-34.0); MEAN CORPUSCULAR HGB CONC 35.8 % (32.0-36.0); MEAN PLATELET VOLUME 6.7 FL (7.0-11.0); MONO % 4.4 % (0.0-8.0); MONOCYTE # 0.6 TH/MM3 (0-0.9); NEUT % 79.5 % (16.0-70.0); PLATELET COUNT 294 TH/MM3 (150-450); RED CELL DISTRIBUTION WIDTH 13.1 % (11.6-17.2); WHITE BLOOD COUNT 12.7 TH/MM3 (4.0-11.0)
[2017-11-01 18:33] LABS: ALBUMIN 3.6 GM/DL (3.4-5.0); AST (GOT) 24 U/L (15-37); BICARBONATE 23.5 MEQ/L (21.0-32.0); BLOOD UREA NITROGEN 9 MG/DL (7-18); CALCIUM 9.1 MG/DL (8.5-10.1); CHLORIDE 105 MEQ/L (98-107); CREATININE 0.64 MG/DL (0.50-1.00); GLOMERULAR FILTRATION RATE 116 ML/MIN (>89); GLUCOSE,RANDOM 84 MG/DL (74-106); SODIUM (NA) 137 MEQ/L (136-145)
[2017-11-01 18:39] LABS: ALKALINE PHOSPHATASE 71 U/L (45-117); ALT (GPT) 37 U/L (10-53); TOTAL BILIRUBIN ADULT 0.9 MG/DL (0.2-1.0); TOTAL PROTEIN 7.6 GM/DL (6.4-8.2)
[2017-11-01 18:51] LABS: BACTERIA, URINE OCC /hpf; BILIRUBIN, URINE NEG (NEG); BLOOD, URINE NEG (NEG); GLUCOSE,URINE NEG (NEG); KETONE, URINE 40 mg/dL (NEG); MUCUS URINE MANY /lpf (OCC); NITRITE,URINE NEG (NEG); SQUAMOUS EPITHELIAL CELL URINE 4 /hpf (0-5); URINE COLOR YELLOW (YELLW/STRAW); URINE LEUKOCYTE ESTERASE LARGE (NEG)
--- NOTE | 2017-11-01 19:46 | PD ---
HPI Chief Complaint: GI Complaint Time Seen by Provider: 19:28 Travel History International Travel<30 days: No Contact w/Intl Traveler<30days: No Traveled to known affect area: No History of Present Illness HPI 22-year-old female came to the emergency room with history of nausea and vomiting mainly today which were too intense episodes that lasted for 30 minutes each. Patient is 8 weeks . She says she has had nausea and some vomiting here and there since the conception but today it was worse than ever before. Patient is A1. No history of spotting or bleeding. Patient also complains of some dull pelvic pain she is unsure if this is from retching too much. She has been lightheaded and short of breath for past 2 weeks. No history of chest pain. vital signs were relatively stable. She is otherwise healthy person. Blood work was done in triage prior to her coming to the emergency room. PFSH Past Medical History Narrative Medical List of her past medical, surgical, social and family history reviewed from the nursing note. Asthma: Yes Anxiety: Yes Diminished Hearing: No Genitourinary: Yes (ovarian cyst) Immunizations Current: Yes ?: LMP: 09/02/17 : 3 Past Surgical History Cholecystectomy: Yes Social History Alcohol Use: Yes (occ) Tobacco Use: Yes Substance Use: No Allergies-Medications (Allergen,Severity, Reaction): Coded Allergies: hydromorphone (Unverified Allergy, Intermediate, 10/23/17) not sure, told pt "you had bad reaction" after surgery Comments List of her allergies reviewed from the nursing note. Reported Meds & Prescriptions Reported Meds & Active Scripts Active Miralax Powder (Polyethylene Glycol 3350 Powder) 17 Gm Powd 17 Gm PO DAILY Mix and dissolve one measuring cap-ful (17 grams) in water or juice. Zofran Odt (Ondansetron Odt) 4 Mg Tab 4 Mg SL Q6HR PRN Reported Lorazepam 2 Mg Tab 2 Mg PO TID PRN Narrative Medication List of her home medications reviewed from the nursing note. Review of Systems Except as stated in HPI: all other systems reviewed are Neg Respiratory: Positive: Shortness of Breath Gastrointestinal: Positive: Nausea, Vomiting, Constipation Physical Exam Narrative GENERAL: Awake, alert, anxious, no obvious distress SKIN: Focused skin assessment warm/dry. HEAD: Atraumatic. Normocephalic. EYES: Pupils equal and round. No scleral icterus. No injection or drainage. ENT: No nasal bleeding or discharge. Mucous membranes pink and moist. NECK: Trachea midline. No JVD. CARDIOVASCULAR: Regular rate and rhythm. No murmur appreciated. RESPIRATORY: No accessory muscle use. Clear to auscultation. Breath sounds equal bilaterally. GASTROINTESTINAL: Abdomen soft, non-tender, nondistended. Hepatic and splenic margins not palpable. MUSCULOSKELETAL: No obvious deformities. No clubbing. No cyanosis. No edema. NEUROLOGICAL: Awake and alert. No obvious cranial nerve deficits. Motor grossly within normal limits. Normal speech. PSYCHIATRIC: Appropriate mood and affect; insight and judgment normal. Data Data Last Documented VS Vital Signs Date Time Temp Pulse Resp B/P (MAP) Pulse Ox O2 Delivery O2 Flow Rate FiO2 11/01/17 17:10 98.4 91 20 108/72 (84) 97 Room Air Orders Orders Complete Blood Count With Diff (11/01/17 17:30) Comprehensive Metabolic Panel (11/01/17 17:30) Urinalysis - C+S If Indicated (11/01/17 17:30) Ed Urine Pregnancytest Poc (11/01/17 17:30) Sodium Chlor 0.9% 1000 Ml Inj (Ns 1000 M (11/01/17 20:00) Acetaminophen (Tylenol) (11/01/17 20:00) Ondansetron Inj (Zofran Inj) (11/01/17 20:00) Sodium Chlor 0.9% 1000 Ml Inj (Ns 1000 M (11/01/17 20:00) Sodium Chlor 0.9% 1000 Ml Inj (Ns 1000 M (11/01/17 20:00) Ed Discharge Order (11/01/17 21:24) Labs Laboratory Tests Test 11/01/17 17:35 11/01/17 17:37 White Blood Count 12.7 TH/MM3 Red Blood Count 4.40 MIL/MM3 Hemoglobin 14.1 GM/DL Hematocrit 39.4 % Mean Corpuscular Volume 89.7 FL Mean Corpuscular Hemoglobin 32.1 PG Mean Corpuscular Hemoglobin Concent 35.8 % Red Cell Distribution Width 13.1 % Platelet Count 294 TH/MM3 Mean Platelet Volume 6.7 FL Neutrophils (%) (Auto) 79.5 % Lymphocytes (%) (Auto) 14.8 % Monocytes (%) (Auto) 4.4 % Eosinophils (%) (Auto) 0.9 % Basophils (%) (Auto) 0.4 % Neutrophils # (Auto) 10.1 TH/MM3 Lymphocytes # (Auto) 1.9 TH/MM3 Monocytes # (Auto) 0.6 TH/MM3 Eosinophils # (Auto) 0.1 TH/MM3 Basophils # (Auto) 0.1 TH/MM3 CBC Comment DIFF FINAL Differential Comment Blood Urea Nitrogen 9 MG/DL Creatinine 0.64 MG/DL Random Glucose 84 MG/DL Total Protein 7.6 GM/DL Albumin 3.6 GM/DL Calcium Level 9.1 MG/DL Alkaline Phosphatase 71 U/L Aspartate Amino Transf (AST/SGOT) 24 U/L Alanine Aminotransferase (ALT/SGPT) 37 U/L Total Bilirubin 0.9 MG/DL Sodium Level 137 MEQ/L Potassium Level 3.4 MEQ/L Chloride Level 105 MEQ/L Carbon Dioxide Level 23.5 MEQ/L Anion Gap 9 MEQ/L Estimat Glomerular Filtration Rate 116 ML/MIN Urine Color YELLOW Urine Turbidity HAZY Urine pH 6.0 Urine Specific [place] 1.024 Urine Protein TRACE mg/dL Urine Glucose (UA) NEG mg/dL Urine Ketones 40 mg/dL Urine Occult Blood NEG Urine Nitrite NEG Urine Bilirubin NEG Urine Urobilinogen LESS THAN 2.0 MG/DL Urine Leukocyte Esterase LARGE Urine RBC 3 /hpf Urine WBC 3 /hpf Urine Squamous Epithelial Cells 4 /hpf Urine Bacteria OCC /hpf Urine Mucus MANY /lpf Microscopic Urinalysis Comment CULT NOT INDICATED MDM Medical Decision Making Medical Screen Exam Complete: Yes Emergency Medical Condition: Yes Medical Record Reviewed: Yes Differential Diagnosis First trimester , dehydration, electrolyte abnormality, hyperemesis gravidarum, constipation Narrative Course 9:21 PM blood test results are back. They are within acceptable limits. UA shows 40 ketones. I have given her 2 L of IV fluid bolus and nausea medicine. Patient will be discharged home with prescription of MiraLAX and Zofran. I have given her reassurance. She needs to follow-up with OB. Procedures EKG Prior to Arrival: No Diagnosis Primary Impression: Vomiting during Additional Impressions: First trimester Constipation Qualified Codes: K59.00 - Constipation, unspecified Referrals: Primary Care Physician Additional Instructions: Please return to the ER if condition worsens or any other new concerns. Take the medications as per the prescription direction. Please find an OB for this and follow-up with OB. Med/Other Pt SpecificInfo: Prescription(s) given Scripts Polyethylene Glycol 3350 Powder (Miralax Powder) 17 Gm Powd 17 GM PO DAILY for Constipation, #1 CAN 0 Refills Mix and dissolve one measuring cap-ful (17 grams) in water or juice. Prov: Subhash Stafford MD 11/01/17 Ondansetron Odt (Zofran Odt) 4 Mg Tab 4 MG SL Q6HR Y for Nausea/Vomiting, #10 TAB 0 Refills Prov: Subhash Stafford MD 11/01/17 Disposition: 01 DISCHARGE HOME Condition: Stable Subhash Stafford MD Nov 01, 2017 19:46
[2017-11-01] MEDS ORDERED: ACETAMINOPHEN 325 MG TAB PO ONE (20:00)
[2017-11-01] MEDS ORDERED: ONDANSETRON HCL 4 MG/2 ML VIAL IV PUSH ONE (20:00)
[2017-11-01] MEDS ORDERED: SODIUM CHLOR 0.9% 1000 ML INJ 1,000 ML IV ONE ×3 (20:00)
[2017-11-01] MEDS ORDERED: ZOFR4TAB3 SL (21:23)
[2017-11-01] MEDS ORDERED: MIRA3350 PO (21:23)
== END 2017-11-01 22:00 | disposition home or self-care (01) ==
LOC: NEPD 17:06
DX: O21.9 Vomiting of pregnancy, unspecified (principal); O99.611 Diseases of the digestive system complicating pregnancy, first trimester; K59.00 Constipation, unspecified; O99.341 Other mental disorders complicating pregnancy, first trimester; F41.9 Anxiety disorder, unspecified; O99.511 Diseases of the respiratory system complicating pregnancy, first trimester; J45.909 Unspecified asthma, uncomplicated; Z3A.08 8 weeks gestation of pregnancy; Z72.0 Tobacco use; Z88.5 Allergy status to narcotic agent; Z79.899 Other long term (current) drug therapy
CPT/HCPCS: 80053; 81001; 84703; 85025; 96374; 99284; J2405; J7030